=== PATIENT | female | born 1990 | race African-American/Black ===

== ENCOUNTER → 2023-12-12 11:48 | Outpatient (CLI) | payer OTHER, SELFPAY ==
--- NOTE | 2023-12-12 11:54 | DI.RAD.S_ITS ---
PROCEDURE: XR FOOT RT 2V INDICATIONS: Other specified arthritis, left ankle and foot TECHNIQUE: 3 views of the foot were acquired. COMPARISON: None. FINDINGS: Bones: Mild hallux valgus deformity noted Joints: The joint spaces are normal in width and alignment without arthritic change. Soft tissues: No soft tissue abnormality. IMPRESSION: Mild hallux valgus Dictated by: Raffi Lewis M.D. on 12/13/2023 at 9:40 Approved by: Raffi Lewis M.D. on 12/13/2023 at 9:41
== END ==
LOC: RAD 11:53
PROVIDERS: Referring Provider Chiropractor; Visit Provider Chiropractor
DX: M13.872 Other specified arthritis, left ankle and foot (principal); M20.11 Hallux valgus (acquired), right foot
CPT/HCPCS: 73620

== ENCOUNTER → 2024-01-13 12:17 | Outpatient (CLI) | payer OTHER, SELFPAY ==
--- NOTE | 2024-01-13 12:20 | DI.RAD.S_ITS ---
PROCEDURE: XR FOOT LT 2V INDICATIONS: FOOT PAIN TECHNIQUE: Two views of the foot were acquired. COMPARISON: [facility], CR, XR FOOT RT 2V, 12/12/2023, 11:52. 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 Joints: The joint spaces are normal in width and alignment without arthritic change. Soft tissues: No soft tissue abnormality. IMPRESSION: Chronic findings as described. Dictated by: Raffi Lewis M.D. on 01/16/2024 at 9:37 Approved by: Raffi Lewis M.D. on 01/16/2024 at 9:38
== END ==
PROVIDERS: Referring Provider Chiropractor; Visit Provider Chiropractor
DX: Q66.89 Other specified congenital deformities of feet (principal); M13.872 Other specified arthritis, left ankle and foot
CPT/HCPCS: 73620